=== PATIENT | female | born 1960 | race Caucasian/White ===

== ENCOUNTER 2016-08-29 21:04 | Emergency (ER) | payer MEDICARE, MEDICAID ==
[~2016-08-29] VITALS: Ht 157.5 cm; Wt 109.0 kg
[~2016-08-29 21:04] MED LIST: ASPI-556 PO; CYCL5TAB PO; DOCU250C91 PO; HYDR-3112 PO; INSLAN SQ; LISI-661 PO; LOVA20 PO; MELO-273 PO; METF500T4 PO; SENN-30 PO
[2016-08-29] MEDS ORDERED: KETOROLAC TROMETHAMINE 30 MG/ML VIAL IM ONE (22:30)
[2016-08-29 22:40] VITALS: BP 124/82
== END 2016-08-29 22:47 | disposition home or self-care (01) ==
LOC: EMS 21:06
DX: F41.9 Anxiety disorder, unspecified (principal); E11.9 Type 2 diabetes mellitus without complications; I10 Essential (primary) hypertension; E78.00 Pure hypercholesterolemia, unspecified; Z79.899 Other long term (current) drug therapy; Z79.4 Long term (current) use of insulin; Z79.82 Long term (current) use of aspirin
CPT/HCPCS: 96372; 99283; J1885

== ENCOUNTER 2023-04-25 16:35 | Emergency (ER) | payer OTHER, MEDICAID ==
[~2023-04-25] VITALS: Ht 157.5 cm; Wt 109.1 kg
[~2023-04-25 16:35] MED LIST changes: +DOCU-412 PO; -DOCU250C91 PO; -HYDR-3112 PO; +HYDR25TA82 PO; -LISI-661 PO; +LISI-893 PO; -LOVA20 PO; +LOVA20TA73 PO; +MELO-107 PO; -MELO-273 PO; +METF-1211 PO; -METF500T4 PO; +SENN-277 PO; -SENN-30 PO
[2023-04-25] MEDS ORDERED: DULA1.5P SQ (16:47)
[2023-04-25 17:04] LABS: BASOPHILS % (AUTO) 1.4 % (0.0-2.0); EOSINOPHILS % (AUTO) 5.8 % (1.0-6.0); HEMATOCRIT 40.8 % (36-46); HEMOGLOBIN 13.2 g/dL (12.0-16.0); LYMPHOCYTES % (AUTO) 30.8 % (22.0-44.0); MEAN CORPUSCULAR HGB CONC 32.3 G/dL (31.0-37.0); MEAN CORPUSCULAR VOLUME 87 fL (80-100); MONOCYTES # (AUTO) 0.8 K/uL (0.1-1.0); MONOCYTES % (AUTO) 8.4 % (2.0-9.0); NEUTROPHILS # (AUTO) 5.2 K/uL (1.8-7.7); NEUTROPHILS % (AUTO) 53.6 % (40.0-70.0); PLATELET COUNT (AUTO) 216 K/uL (150-450); RED CELL DISTRIBUTION WIDTH 13.5 % (11.5-14.5); WHITE BLOOD COUNT (AUTO) 9.8 K/uL (4.5-11.0)
[2023-04-25 17:14] LABS: CREATININE 1.04 mg/dL (0.60-1.30); POTASSIUM 4.1 mmol/L (3.5-5.1)
[2023-04-25 17:19] LABS: ALBUMIN 3.9 g/dL (3.4-5.0); BILIRUBIN,TOTAL 0.5 mg/dL (0.1-1.0); TOTAL PROTEIN, SERUM 7.7 g/dL (6.4-8.2)
[2023-04-25 17:21] LABS: TROPONIN I-HIGH SENSITIVITY 5 ng/L (<51)
[2023-04-25 19:35] LABS: TROPONIN I-HIGH SENSITIVITY 6 ng/L (<51)
[2023-04-25 21:00] VITALS: BP 132/68; PULSE 85; RESP 18; TEMP 97.3
== END 2023-04-25 21:00 | disposition home or self-care (01) ==
LOC: EMS 16:42
DX: F41.9 Anxiety disorder, unspecified (principal); R07.89 Other chest pain; E11.9 Type 2 diabetes mellitus without complications; E78.00 Pure hypercholesterolemia, unspecified; I10 Essential (primary) hypertension; Z98.890 Other specified postprocedural states
CPT/HCPCS: 71045; 80053; 83880; 84484; 85025; 93005; 99285; 36415-L1; 36415-TC